=== PATIENT | female | born 1935 | race Caucasian/White ===

== ENCOUNTER 2019-09-23 15:48 | Emergency (ER) | payer OTHER ==
[~2019-09-23] VITALS: Ht 154.9 cm; Wt 69.9 kg
[2019-09-23] MEDS ORDERED: CEFTRIAXONE 1 G in IV D5W 50 ML IV ONE (16:00)
[2019-09-23] MEDS ORDERED: IV NS 0.9% 500 ML IV ONE (16:00)
--- NOTE | 2019-09-23 16:11 | NUR ---
patient BIBRA from board and care, due to hypotension and congestion. On 02 4lpm via NC sat of 95%, noted coughing, IV access initiated, blood drawned and sent to lab. Will continue to monitor accordingly.
[2019-09-23 16:15] LABS: BASOPHILS % (AUTO) 0.4 % (0.0-2.0); EOSINOPHILS % (AUTO) 1.6 % (0.0-6.0); HEMATOCRIT 43 % (33-45); HEMOGLOBIN 14.2 g/dL (11.5-14.8); LYMPHOCYTES # (AUTO) 0.9 /CMM (0.8-4.8); LYMPHOCYTES % (AUTO) 10.7 % (20.0-44.0); MEAN CORPUSCULAR HGB CONC 33 g/dl (31.0-36.0); MEAN CORPUSCULAR VOLUME 90 fL (82-100); MONOCYTES # (AUTO) 0.9 /CMM (0.1-1.30); MONOCYTES % (AUTO) 9.9 % (2.0-12.0); NEUTROPHILS # (AUTO) 6.8 /CMM (1.8-8.9); NEUTROPHILS % (AUTO) 77.4 % (43.0-81.0); PLATELET COUNT (AUTO) 140 /CMM (150-450); RED BLOOD CELL COUNT(AUTO) 4.73 MIL/uL (4.0-5.2); WHITE BLOOD COUNT (AUTO) 8.8 K/uL (4.3-11.0)
[2019-09-23] MEDS ORDERED: CEFTRIAXONE 1GM BAG (ER ONLY) 50 ML IV ONE (16:22)
[2019-09-23 16:25] LABS: CALCIUM, SERUM 9.3 mg/dL (8.5-10.1); CARBON DIOXIDE 32 mmol/L (21-32); CHLORIDE 102 mmol/L (98-107); CREATININE 1.1 mg/dL (0.6-1.3); GLUCOSE 106 mg/dL (74-106); POTASSIUM 4.9 mmol/L (3.5-5.1); SODIUM SERUM 139 mmol/L (136-145); UREA NITROGEN, BLOOD 21 mg/dL (7-18)
[2019-09-23 16:35] LABS: ALANINE AMINOTRANSFERASE 29 U/L (12-78); ALBUMIN 3.3 g/dL (3.4-5.0); ALKALINE PHOSPHATASE 91 U/L (46-116); ASPARTATE AMINOTRANSFERASE 23 U/L (15-37); B-TYPE NATRIURETIC PEPTIDE 1184 PG/ML (0-125); BILIRUBIN,DIRECT 0.2 mg/dL (0.0-0.2); BILIRUBIN,TOTAL 0.7 mg/dL (0.2-1.0); TOTAL PROTEIN, SERUM 7.6 g/dL (6.4-8.2)
[2019-09-23] MEDS ORDERED: ALBUTEROL FS 2.5 MG/3 ML VIAL.NEB ONE (17:14)
--- NOTE | 2019-09-23 17:20 | NUR ---
PT'S GETTING BREATHING TX, PT TAMIR WELL
[2019-09-23] MEDS ORDERED: ALBUTEROL FS 2.5 MG/3 ML VIAL.NEB CONTNEB ONE (17:30)
[2019-09-23] MEDS ORDERED: FUROSEMIDE 20 MG/2 ML VIAL IV ONE (17:30)
[2019-09-23] MEDS ORDERED: DEXAMETHASONE SOD PHOSPHATE 10 MG/ML VIAL ONE (17:58)
[2019-09-23] MEDS ORDERED: FUROSEMIDE 20 MG/2 ML VIAL ONE (17:58)
[2019-09-23] MEDS ORDERED: DEXAMETHASONE SOD PHOSPHATE 10 MG/ML VIAL IV ONE (18:00)
[2019-09-23] MEDS ORDERED: DEXAMETHASONE SOD PHOSPHATE 4 MG in IV D5W 50 ML IV ONE (18:00)
--- NOTE | 2019-09-23 18:10 | NUR ---
MEDICATED ORDERED PER ERMD, PT TAMIR WELL.
--- NOTE | 2019-09-23 18:45 | NUR ---
CALLED [facility] [phone] WILL CALL US BACK FOR TRANSPORT.
--- NOTE | 2019-09-23 20:27 | NUR ---
[facility] ETA [id number]
[2019-09-23 21:53] VITALS: BP 135/75
--- NOTE | 2019-09-23 21:55 | NUR ---
REPORT GIVEN TO SOPHIE NAVARRETE, EMT FROM [facility]. PT EN ROUTE TO SNF VIA BLS.Patient discharged to SNF in stable condition. Verbal after care instructions given DAUGHTER BY DR. ESTRADA & WRITTEN ACI GIVEN TO EMT. IV removed. Catheter intact and site benign. Pressure and 4x4 applied to site. No bleeding noted.
== END 2019-09-23 21:55 ==
LOC: ER 15:49
DX: J45.909 Unspecified asthma, uncomplicated (principal); I50.9 Heart failure, unspecified; G30.9 Alzheimer's disease, unspecified; Z88.0 Allergy status to penicillin; Z88.1 Allergy status to other antibiotic agents
CPT/HCPCS: 36415; 71045; 80048; 80076; 83605; 83880; 84484; 85025; 87040; 93005 ×2; 94640; 96365; 96375; 99284; J0696 ×2; J1100 ×2; J1940; J7040; J7060 ×2